=== PATIENT | male | born 1990 | race Caucasian/White ===

== ENCOUNTER 2017-01-23 21:13 | Emergency (ER) | payer SELFPAY ==
--- NOTE | 2017-01-23 23:07 | Ultrasound Report ---
FINAL REPORT PROCEDURE: US TESTICULAR DOPPLER COMP TECHNIQUE: Real-time foote-scale and color flow Doppler sonography in multiple planes of the scrotum, testicles, and epididymes was performed. Velocity spectral waveform analysis Doppler imaging of the arterial inflow and venous outflow of the testicles was performed with image documentation. CPT 37713 and 35392 HISTORY: Left-sided pain COMPARISON: No prior studies are available for comparison. FINDINGS: RIGHT TESTICLE: Size: 3.3 x 2.2 x 3.5 cm . Appearance: Normal size and echotexture . Arterial blood flow: Normal spectral waveforms, flow velocities and color flow images.. Venous blood flow: Normal spectral waveforms and color flow images. Right epididymis: 3 millimeter cyst within the epididymal head. Hydrocele: None . LEFT TESTICLE Size: 3.5 x 2.1 x 3.2 cm . Appearance: Normal size and echotexture . Arterial blood flow: Increased vascularity compared to the right testis. Venous blood flow: Increased vascularity compared to the right testis. Left epididymis: Medial to the testis there is prominent hypervascular structure which measures 5.8 x 2.0 x 2.4 centimeters, likely related to the epididymis. Note is also made of an 8 millimeter cyst within the left epididymal head. Hydrocele: None . IMPRESSION: Findings are compatible with left epididymo-orchitis.
[2017-01-24 00:08] LABS: Bilirubin,Urine NEG (Negative); Blood,Urine NEG (Negative); Ketones,Urine NEG (Negative); Leukocyte Esterase,Urine NEG (Negative); Nitrite,Urine NEG (Negative); Protein,Urine <15 mg/dL mg/dL (Negative); Urobilinogen,Urine < 2.0 mg/dL (<2.0)
[2017-01-24 02:03] VITALS: BP 120/62
[2017-01-24] MEDS ORDERED: ROCEPHIN ONE (06:20)
--- NOTE | 2017-01-24 08:08 | Emergency Department Report ---
HPI - General Chief Complaint: Urogenital-Male Time Seen by Provider: 01/24/17 04:49 - HPI HPI: This is a 26-year-old male who presents to the emergency department with a 6 day history of left-sided testicular pain and swelling. He denies any trauma to the area. He has not taken anything for his symptoms prior to presentation. He denies any dysuria, penile discharge, skin color change or lesions to the penis or scrotum. He has never had this occur previously. He does not have a primary care doctor. Sometimes the pain worsens when he is sitting down. There are no alleviating factors. No recent travel or sick contacts at home. He is in a committed relationship with a female who is currently bedside and denies any history of STDs. ED Past Medical Hx - Past Medical History Previous Medical History?: No - Surgical History Past Surgical History?: No - Social History Smoking Status: Never Smoker Substance Use Type: None - Medications Home Medications: Home Medications Medication Instructions Recorded Confirmed Last Taken Type Doxycycline [Vibramycin CAP] 100 mg PO Q12HR #20 capsule 01/24/17 Unknown Rx ED Review of Systems ROS: Stated complaint: TESTICAL PAIN/SWELLING/L LEG PAIN Other details as noted in HPI Comment: All other systems reviewed and negative Constitutional: denies: chills, fever Eyes: denies: eye pain, eye discharge, vision change ENT: denies: ear pain, throat pain Respiratory: denies: cough, shortness of breath, wheezing Cardiovascular: denies: chest pain, palpitations Gastrointestinal: denies: abdominal pain, nausea, diarrhea Genitourinary: testicular pain. denies: dysuria, discharge Musculoskeletal: denies: back pain, joint swelling, arthralgia Skin: denies: rash, lesions Neurological: denies: headache, weakness, paresthesias Physical Exam - Physical Exam Vital Signs: Vital Signs 01/23/17 01/24/17 21:24 02:02 Temperature 98.7 F 97.9 F Pulse Rate 80 75 Respiratory 18 16 Rate Blood Pressure 119/75 Blood Pressure 119/75 120/62 [Left] O2 Sat by Pulse 99 100 Oximetry Physical Exam: GENERAL: The patient is well-developed well-nourished. HEENT: Normocephalic. Atraumatic. Extraocular motions are intact. Patient has moist mucous membranes. NECK: Supple. Trachea is midline. CHEST/LUNGS: Clear to auscultation. There is no respiratory distress noted. HEART/CARDIOVASCULAR: Regular. There is no tachycardia. There is no gallop rub or murmur. ABDOMEN: Abdomen is soft, nontender. Patient has normal bowel sounds. There is no abdominal distention. SKIN: There are no penile or scrotal lesions seen. No skin color change. NEURO: The patient is awake, alert, and oriented. The patient is cooperative. The patient has no focal neurologic deficits. The patient has normal speech. MUSCULOSKELETAL: There is no tenderness or deformity. There is no limitation range of motion. There is no evidence of acute injury. : There is some mild tenderness to palpation of the left testicle. It does not appear to be torsed. There are no palpable inguinal hernias. ED Course Vital Signs 01/23/17 01/24/17 21:24 02:02 Temperature 98.7 F 97.9 F Pulse Rate 80 75 Respiratory 18 16 Rate Blood Pressure 119/75 Blood Pressure 119/75 120/62 [Left] O2 Sat by Pulse 99 100 Oximetry ED Medical Decision Making - Radiology Data Radiology results: report reviewed Testicular ultrasound shows left epididymoorchitis. No torsion - Medical Decision Making 26-year-old male presents to the emergency department with a six-day history of left-sided testicular pain and some swelling. No trauma. Vital signs stable throughout his ED course. Urinalysis was negative. Testicular ultrasound shows a left-sided epididymoorchitis. No visible or palpable hernia or masses. Patient was given a dose of Rocephin and a prescription for a course of doxycycline. He was given referrals for primary care and neurology. Will return to the ER with any worsening of symptoms or any acute distress. - Differential Diagnosis torsion, epididymitis, orchitis, hernia Critical Care Time: No Critical care attestation.: If time is entered above; I have spent that time in minutes in the direct care of this critically ill patient, excluding procedure time. ED Disposition Clinical Impression: Epididymo-orchitis Disposition: DISCHARGED TO HOME OR SELFCARE Is pt being admited?: No Condition: Stable Instructions: Epididymitis (ED) Additional Instructions: Please follow-up with primary care doctor and urology. Return to the emergency department with any worsening of her symptoms or any acute distress. Prescriptions: Doxycycline [Vibramycin CAP] 100 mg PO Q12HR #20 capsule Referrals: PRIMARY CARE,MD [Primary Care Provider] - 3-5 Days SHAZIA MAE MD [Staff Physician] - 3-5 Days [facility] [Outside] - 3-5 Days Forms: STI Treatment and Prevention Time of Disposition: 08:07
== END 2017-01-24 06:45 | disposition home or self-care (01) ==
LOC: ED 21:13
DX: N45.3 Epididymo-orchitis (principal)
CPT/HCPCS: 81001; 87086; 93975; 99283; J0696